=== PATIENT | female | born 2000 | race African-American/Black ===

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

== ENCOUNTER 2019-03-06 07:27 | Emergency (ER) | payer SELFPAY ==
[2019-03-06 08:34] LABS: APPEARANCE,URINE SLIGHTLY-CLOUDY; BILIRUBIN,URINE NEGATIVE (NEGATIVE); COLOR,URINE YELLOW; GLUCOSE, URINE NEGATIVE (NEGATIVE); KETONES,URINE TRACE mg/dL (NEGATIVE); LEUKOCYTE ESTERASE,URINE MODERATE (NEGATIVE); NITRITE,URINE NEGATIVE (NEGATIVE); PROTEIN,URINE NEGATIVE (NEGATIVE); URINE SPECIFIC GRAVITY 1.026; UROBILINOGEN,URINE NEGATIVE mg/dL (<2.0)
[2019-03-06 09:49] LABS: T.VAGINALIS (WET MOUNT) NO TRICHOMONAS SEEN; YEAST (WET MOUNT) NO YEAST SEEN
[2019-03-06 09:50] LABS: BACTERIA (WET MOUNT) 4+ BACTERIA SEEN; RBCS (WET MOUNT) RARE RBCS SEEN; WBCS (WET MOUNT) 2+ WBCS SEEN
[2019-03-06 09:51] LABS: EPITHELIALS (WET MOUNT) 3+ EPITHELIALS SEEN
--- NOTE | 2019-03-06 10:25 | ER Document Report ---
Entered by CRYSTAL FLORES SCRIBE 03/06/19 0919 Acting as scribe for:BRITTANY SOLORIO MD ED General - General Chief Complaint: Vaginal Discharge Stated Complaint: URINARY ISSUES Time Seen by Provider: 03/06/19 08:49 Notes: Patient is a 18-year-old female with history of STD presenting to the emergency department complaining of vaginal discharge. Patient states that at the beginning of the month she noticed abnormal vaginal discharge that was discolored. Patient states that it is a brown/montesinos shade. Patient states that she is currently sexually active. Patient denies experiencing any fever, vomiting, diarrhea, abdominal pain, she states she has not had this STD treated before. TRAVEL OUTSIDE OF THE [place] IN LAST 30 DAYS: No - Related Data Allergies/Adverse Reactions: No Known Allergies Allergy (Verified 03/06/19 07:31) Past Medical History - General Information source: Patient - Social History Smoking Status: Unknown if Ever Smoked Cigarette use (# per day): No Chew tobacco use (# tins/day): No Frequency of alcohol use: None Drug Abuse: None Family History: Reviewed & Not Pertinent Patient has suicidal ideation: No Patient has homicidal ideation: No Renal/ Medical History: Denies: Hx Peritoneal Dialysis Review of Systems - Review of Systems Constitutional: No symptoms reported. denies: Fever EENT: No symptoms reported Cardiovascular: No symptoms reported Respiratory: No symptoms reported, Hurts to breathe Gastrointestinal: No symptoms reported. denies: Abdominal pain, Diarrhea, Nausea, Vomiting Genitourinary: No symptoms reported Female Genitourinary: No symptoms reported, Vaginal discharge - Brown/montesinos colored Musculoskeletal: No symptoms reported Skin: No symptoms reported Hematologic/Lymphatic: No symptoms reported Neurological/Psychological: No symptoms reported -: Yes All other systems reviewed and negative Physical Exam - Vital signs Vitals: Temp Pulse Resp BP Pulse Ox 97.5 F 69 16 109/53 L 100 03/06/19 07:51 03/06/19 07:51 03/06/19 07:51 03/06/19 07:51 03/06/19 07:51 - Notes Notes: Physical Exam: General: Alert, appears well. HEENT: Normocephalic. Atraumatic. PERRL. Extraocular movements intact. Oropharynx clear. Neck: Supple. Non-tender. Respiratory: No respiratory distress. Clear and equal breath sounds bilaterally. Cardiovascular: Regular rate and rhythm. Abdominal: Normal Inspection. Non-tender. No distension. Normal Bowel Sounds. Back: Non-tender. No deformity or step off. Extremities: Moves all four extremities. Upper extremities: Normal inspection. Normal ROM. Lower extremities: Normal inspection. No edema. Normal ROM. Neurological: Normal cognition. AAOx4. Normal speech. Psychological: Normal affect. Normal Mood. Skin: Warm. Dry. Normal color. Course - Re-evaluation Re-evalutation: 03/06/19 10:54 Patient's wet mount shows signs of bacterial vaginosis. Patient has a history of STDs. We will also treat prophylactically for GC and chlamydia. Discussed she would be called if GC chlamydia is positive. Return precautions provided. Discussed if it is positive she needs to follow-up with her sexual partners and let them know to be treated. Safe sex discussion was provided. - Vital Signs Vital signs: Temp Pulse Resp BP Pulse Ox 97.8 F 69 16 119/72 100 03/06/19 11:45 03/06/19 11:45 03/06/19 07:51 03/06/19 11:45 03/06/19 11:45 - Laboratory Laboratory results interpreted by me: 03/06/19 03/06/19 08:06 09:27 Urine Ketones TRACE H Ur Leukocyte Esterase MODERATE H Urine Ascorbic Acid 40 H Chlamydia DNA (PCR) DETECTED H Discharge - Discharge Clinical Impression: Vaginal discharge Condition: Good Disposition: HOME, SELF-CARE Instructions: Vaginosis, Bacterial ([facility]) Additional Instructions: You will be called if your GC or chlamydia tests are positive. You have been treated in the emergency department. Symptoms are improving seek medical care. Prescriptions: RX: Metronidazole [Flagyl 500 mg Tablet] 500 mg PO TID #21 tablet Scribe Attestation: 03/06/19 13:49 I personally performed the services described documentation, reviewed and edited the documentation which was dictated to describe my presence, and it accurately records my words and actions. I personally performed the services described in the documentation, reviewed and edited the documentation which was dictated to the scribe in my presence, and it accurately records my words and actions.
[2019-03-06] MEDS ORDERED: AZITHROMYCIN 1 GM SUSP PACKET PO ONE (10:55)
[2019-03-06] MEDS ORDERED: METOCLOPRAMIDE HCL 10 MG TABLET PO ONE (10:55)
[2019-03-06] MEDS ORDERED: CEFTRIAXONE INJ 250 MG VIAL IM ONE (10:56)
[2019-03-06 11:52] VITALS: BP 119/72
[2019-03-06 12:32] LABS: CHLAM PCR DETECTED (NOT DETECT)
== END 2019-03-06 11:51 | disposition home or self-care (01) ==
LOC: ER 07:27
DX: N89.8 Other specified noninflammatory disorders of vagina (principal)
CPT/HCPCS: 99283; 96372; 87210; 81025; 81001; 87491; 87591; Q0144; J0696

== ENCOUNTER 2020-07-20 22:25 | Emergency (ER) | payer SELFPAY ==
--- NOTE | 2020-07-20 22:59 | ER Document Report ---
ED Medical Screen (RME) - General Chief Complaint: Chest Pain Stated Complaint: CHEST PAIN Time Seen by Provider: 07/20/20 22:54 Mode of Arrival: Ambulatory Information source: Patient Notes: Patient is a 11-year-old female comes emergency room complaining of having chest discomfort and pain with shortness of breath for the past month especially when she goes to lay down. She states while she is at work it does not seem to bother her as much but when she gets home and goes to lay down she has anterior midsternal chest pain with sometimes radiation to the back. She also states that it makes her short of breath. She does not know any association between eating. She has had increased amounts of reflux type of presentation as well as some right upper quadrant pain on occasion. Patient denies smoking alcohol or narcotics. She is on control with the [employer] and she has not had a. Since May. Only heart history in the family is for Shantel. Patient is a well-nourished well-developed 20-year-old female no apparent distress on examination. Cardiac: Patient displays a rate of 81 bpm on monitor. No murmurs are auscultated. Palpation of patient's anterior chest does show some mild reproducible tenderness across the sternal border area. Lungs: Bilateral breath sounds increased clear to auscultation no rhonchi rales or wheeze. Abdomen: Bowel sounds present 4 quads nontender to palpate there is some mild discomfort mid epigastric in the sitting position and also in the right upper quadrant slightly. I have greeted and performed a rapid initial assessment of this patient. A comprehensive ED assessment and evaluation of the patient, analysis of test results and completion of the medical decision making process will be conducted by additional ED providers. Dictation of this chart was performed using voice recognition software; therefore, there may be some unintended grammatical errors. TRAVEL OUTSIDE OF THE [place] IN LAST 30 DAYS: No - Related Data Allergies/Adverse Reactions: No Known Allergies Allergy (Verified 03/06/19 07:31) Past Medical History - Social History Chew tobacco use (# tins/day): No Frequency of alcohol use: None Drug Abuse: None Renal/ Medical History: Denies: Hx Peritoneal Dialysis Physical Exam - Vital signs Vitals: Temp Pulse Resp BP Pulse Ox 98.3 F 81 16 133/76 H 98 07/20/20 22:34 07/20/20 22:34 07/20/20 22:34 07/20/20 22:34 07/20/20 22:34 Course - Vital Signs Vital signs: Temp Pulse Resp BP Pulse Ox 98.3 F 81 16 133/76 H 98 07/20/20 22:34 07/20/20 22:34 07/20/20 22:34 07/20/20 22:34 07/20/20 22:34
[2020-07-20 23:28] LABS: ABSOLUTE EOSINOPHILS # (AUTO) 0.1 10^3/uL (0.0-0.6); ABSOLUTE LYMPHOCYTES (AUTO) 2.6 10^3/uL (0.5-4.7); ABSOLUTE MONOCYTES (AUTO) 0.5 10^3/uL (0.1-1.4); ABSOLUTE NEUT (AUTO) 2.9 10^3/uL (1.7-8.2); BASOPHILS % (AUTO) 0.8 % (0-2); HEMATOCRIT 34.6 % (36.0-47.0); HEMOGLOBIN 11.6 g/dL (12.0-15.5); LYMPHOCYTES % (AUTO) 42.8 % (13-45); MEAN CORPUSCULAR HGB CONC 33.6 g/dL (32.0-36.0); MEAN CORPUSCULAR VOLUME 83 fl (80-97); MONOCYTES % (AUTO) 8.3 % (3-13); PLATELET COUNT 277 10^3/uL (150-450); RED BLOOD COUNT 4.16 10^6/uL (3.72-5.28); RED CELL DISTRIBUTION WIDTH 15.2 % (11.5-14.0); SEGMENTED NEUTROPHILS % (AUTO) 47.1 % (42-78); TOTAL CELLS COUNTED % (AUTO) 100 %; WHITE BLOOD COUNT 6.1 10^3/uL (4.0-10.5)
[2020-07-20 23:42] LABS: ALBUMIN 4.3 g/dL (3.5-5.0); ALKALINE PHOSPHATASE 99 U/L (38-126); ANION GAP 7 (5-19); ASPARTATE AMINO TRANSFERASE 31 U/L (14-36); BILIRUBIN,TOTAL 0.4 mg/dL (0.2-1.3); BLOOD UREA NITROGEN 19 mg/dL (7-20); CALCIUM 9.7 mg/dL (8.4-10.2); CARBON DIOXIDE 26 mmol/L (22-30); CHLORIDE 104 mmol/L (98-107); GLUCOSE 163 mg/dL (75-110); POTASSIUM 4.5 mmol/L (3.6-5.0); TOTAL PROTEIN 8.1 g/dL (6.3-8.2)
--- NOTE | 2020-07-21 01:29 | RADIOLOGY REPORT (SQ) ---
EXAM DESCRIPTION: XR CHEST 1 VIEW COMPLETED DATE/TME: 07/21/2020 01:04 CLINICAL HISTORY: 20 years Female, Chest pain COMPARISON: None. NUMBER OF VIEWS/TECHNIQUE: 1/AP FINDINGS: Adequate lung volume, clear parenchyma, normal cardiac silhouette, and intact bony thorax. IMPRESSION: No acute cardiopulmonary findings.
[2020-07-21 05:11] LABS: APPEARANCE,URINE SLIGHTLY-CLOUDY; BILIRUBIN,URINE NEGATIVE (NEGATIVE); COLOR,URINE YELLOW; GLUCOSE, URINE NEGATIVE (NEGATIVE); KETONES,URINE NEGATIVE (NEGATIVE); LEUKOCYTE ESTERASE,URINE NEGATIVE (NEGATIVE); NITRITE,URINE NEGATIVE (NEGATIVE); PROTEIN,URINE NEGATIVE (NEGATIVE); URINE SPECIFIC GRAVITY 1.028; UROBILINOGEN,URINE NEGATIVE mg/dL (<2.0)
--- NOTE | 2020-07-21 06:00 | ER Document Report ---
ED General - General Chief Complaint: Chest Pain Stated Complaint: CHEST PAIN Time Seen by Provider: 07/20/20 22:54 Mode of Arrival: Ambulatory Information source: Patient Notes: Patient presents to the ER for evaluation of chest pain with shortness of breath that has been intermittent over the last month. The patient states symptoms are worse at nighttime. She states the symptoms typically completely resolved while she is at work. She states she is in a difficult relationship that is causing a lot of stress in her life and she feels like this may have something to do with her symptoms. She denies fever. She denies cough or congestion. She does not currently have any chest pain. Nursing notes reviewed and past medical, social, and family histories reviewed and validated. TRAVEL OUTSIDE OF THE [place] IN LAST 30 DAYS: No - Related Data Allergies/Adverse Reactions: No Known Allergies Allergy (Verified 03/06/19 07:31) Past Medical History - General Information source: Patient - Social History Smoking Status: Never Smoker Chew tobacco use (# tins/day): No Frequency of alcohol use: None Drug Abuse: None Lives with: Family Family History: Reviewed & Not Pertinent Patient has suicidal ideation: No Patient has homicidal ideation: No - Past Medical History Cardiac Medical History: Reports: None Pulmonary Medical History: Reports: None EENT Medical History: Reports: None Neurological Medical History: Reports: None Endocrine Medical History: Reports: None Renal/ Medical History: Reports: None Malignancy Medical History: Reports: None GI Medical History: Reports: None Musculoskeletal Medical History: Reports None Skin Medical History: Reports None Psychiatric Medical History: Reports: None Traumatic Medical History: Reports: None Infectious Medical History: Reports: None Past Surgical History: Reports: None - Immunizations Immunizations up to date: Yes Hx Diphtheria, Pertussis, Tetanus Vaccination: Yes Review of Systems - Review of Systems Notes: Constitutional: Negative for fever. HENT: Negative for sore throat. Eyes: Negative for visual changes. Cardiovascular: Positive for chest pain. Respiratory: Positive for shortness of breath. Gastrointestinal: Negative for abdominal pain, vomiting or diarrhea. Genitourinary: Negative for dysuria. Musculoskeletal: Negative for back pain. Skin: Negative for rash. Neurological: Negative for headaches, weakness or numbness. 10 point ROS negative except as marked above and in HPI. Physical Exam - Vital signs Vitals: Temp Pulse Resp BP Pulse Ox 98.3 F 81 16 133/76 H 98 12/30/20 22:34 07/20/20 22:34 07/20/20 22:34 07/20/20 22:34 07/20/20 22:34 - Notes Notes: CONSTITUTIONAL: Well appearing. No acute distress. SKIN: Warm, dry, and intact without rash EYES: Extraocular movements are grossly intact, clear conjunctiva HENT: Normocephalic, atraumatic, moist mucus membranes NECK: No obvious swelling, normal range of motion PULMONARY: Normal chest rise and fall. Breath sounds clear and equal bilaterally. No respiratory distress or stridor CARDIOVASCULAR: Regular rate. No murmurs, rubs, gallops. Distal extremities are warm and well perfused. ABDOMINAL: Soft, nontender NEUROLOGIC: Normal speech, moves all extremities. Cranial nerves are within normal limits. Animal Behaviourist strength strong and equal in the upper extremities bilaterally. There is good strength and sensation in bilateral lower extremities. There is no arm or leg drift noted. MUSCULOSKELETAL: No gross deformities, atraumatic PSYCHIATRIC: Normal mood and affect Course - Re-evaluation Re-evalutation: 07/21/20 05:59 Rechecked patient. Discussed with patient: results, diagnosis, treatment plan, and need for follow-up. Return to the emergency department warnings were given. All questions and concerns were addressed. The plan is agreed with and understood. Patient is stable and ready for discharge. - Vital Signs Vital signs: Temp Pulse Resp BP Pulse Ox 97.9 F 65 20 120/67 98 07/21/20 05:35 07/21/20 05:35 07/21/20 05:35 07/21/20 05:35 07/21/20 05:35 - Laboratory Results Result Diagrams: 07/20/20 23:05 07/20/20 23:05 Laboratory Results Interpreted: 07/20/20 07/20/20 23:05 23:05 Hgb 11.6 L Hct 34.6 L RDW 15.2 H Glucose 163 H ALT 36 H Critical Laboratory Results Reviewed: No Critical Results - Radiology Results Critical Radiology Results Reviewed: No Critical Results Discharge - Discharge Clinical Impression: Situational anxiety Chest pain Qualifiers: Chest pain type: unspecified Qualified Code(s): R07.9 - Chest pain, unspecified Condition: Stable Disposition: HOME, SELF-CARE Instructions: Anxiety ([facility]) Additional Instructions: Follow-up with your primary care this week for recheck. Return to the emergency room if your symptoms change or worsen. Prescriptions: Hydroxyzine Pamoate [Vistaril 50 mg Capsule] 50 mg PO Q6HP PRN #15 capsule PRN Reason: Anxiety
[2020-07-21] MEDS ORDERED: HYDROXYZINE PAMOATE 50 MG CAPSULE PO ONE (06:06)
[2020-07-21 06:20] VITALS: BP 113/62
--- NOTE | 2020-07-21 11:45 | EKG REPORT ---
SEVERITY:- NORMAL ECG - SINUS RHYTHM : Confirmed by: Kaveh Aggarwal MD 21-Jul-2020 11:44:48
== END 2020-07-21 06:20 | disposition home or self-care (01) ==
LOC: ER 22:25
DX: R07.9 Chest pain, unspecified (principal); F41.8 Other specified anxiety disorders
CPT/HCPCS: 36415; 71045; 80053; 81001; 81025; 83690; 84484; 85025; 87086; 87088; 87186; 93005; 93010; 99285